=== PATIENT | male | born 1995 | race Caucasian/White ===

== ENCOUNTER 2019-05-19 08:55 | Emergency (ER) | payer OTHER ==
[~2019-05-19] VITALS: Ht 170.2 cm; Wt 71.8 kg
[2019-05-19 09:06] VITALS: BP 161/108
--- NOTE | 2019-05-19 09:40 | NUR ---
pt got out of gown, making statements that he needs to leave, educated that he would be leaving [facility], and it is not advised but that he has the right to leave, pt educated to let nurse know if he wants to leave, pt communicated understanding.
== END 2019-05-19 09:52 | disposition left against medical advice (07) ==
LOC: ED 09:17
DX: R05 Cough (principal); Z53.21 Procedure and treatment not carried out due to patient leaving prior to being seen by health care provider
CPT/HCPCS: 71045

== ENCOUNTER 2020-10-17 19:27 | Emergency (ER) | payer MEDICAID ==
[~2020-10-17] VITALS: Ht 180.3 cm; Wt 75.2 kg
--- NOTE | 2020-10-17 19:35 | NUR ---
NIL X 1 WHEN CALLED FOR TRIAGE.
[2020-10-17] MEDS ORDERED: LIDOCAINE-MPF 1%, 5ML INFIL ONE (20:30)
--- NOTE | 2020-10-17 23:20 | NUR ---
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
[2020-10-17] MEDS ORDERED: LIDOCAINE-MPF 1%, 5ML ONE (23:33)
[2020-10-18] MEDS ORDERED: ACETAMINOPHEN 500 MG TABLET PO ONE
--- NOTE | 2020-10-18 00:03 | NUR ---
PT MC/O OF LEFT LEG ABSCESS FOR LAST FEW DAYS. PT ATTACHED TO MONITORS, VSS, NADN. PA AT BEDSIDE PERFORMING PROCEDURE.
[2020-10-18] MEDS ORDERED: BACITRACIN ZINC OINT 500U/GM, 0.9 GM ONE (00:08)
[2020-10-18] MEDS ORDERED: SULFAMETH./TRIMETHOPRIM DS 800MG/160MG TABLET ONE (00:29)
[2020-10-18] MEDS ORDERED: CEPHALEXIN 500 MG CAPSULE ONE (00:29)
[2020-10-18] MEDS ORDERED: CEPHALEXIN 500 MG CAPSULE PO ONE (00:30)
[2020-10-18] MEDS ORDERED: SULFAMETH./TRIMETHOPRIM DS 800MG/160MG TABLET PO ONE (00:30)
[2020-10-18 00:31] VITALS: BP 111/70
--- NOTE | 2020-10-18 00:33 | NUR ---
PT REFUSED TYLENOL
--- NOTE | 2020-10-18 00:44 | NUR ---
Patient/Caregiver given discharge instructions and they have confirmed that they understand the instructions. Patient ambulatory with steady gait WITH CRUCTCHES. NAD, all questions answered appropriately, denies additional needs at this time. No personal belongings left in room after discharge.
== END 2020-10-18 00:45 | disposition home or self-care (01) ==
LOC: ED 19:57
DX: L03.116 Cellulitis of left lower limb (principal); L02.416 Cutaneous abscess of left lower limb; R21 Rash and other nonspecific skin eruption; F17.200 Nicotine dependence, unspecified, uncomplicated
CPT/HCPCS: 10060